=== PATIENT | male | born 1950 | race Caucasian/White ===

== ENCOUNTER 2018-05-03 18:55 | Observation (INO) | payer OTHER, MEDICARE ==
[2018-05-03] MEDS ORDERED: Sodium Chloride 0.9% 10 ML Syringe FLUSH PRN (19:35)
[2018-05-03] MEDS ORDERED: Ondansetron 4 MG/2 ML SDV IVPUSH ONE (19:36)
[2018-05-03] MEDS ORDERED: LORazepam 2 MG/ML SDV IVPUSH ONE (19:36)
[2018-05-03] MEDS ORDERED: Sodium Chloride 0.9% 1,000 ML IV SCH (19:45)
--- NOTE | 2018-05-03 20:20 | EDM.PDOC ---
ED HPI GENERAL MEDICAL PROBLEM - General Chief Complaint: Head Injury Stated Complaint: Head injury, intoxication, bloody emesis Time Seen by Provider: 05/03/18 18:55 Source of Information: Reports: Patient History Limitations: Reports: Altered Mental Status, Other (unresponsive) - History of Present Illness INITIAL COMMENTS - FREE TEXT/NARRATIVE: Pt. presents to ER via private vehicle. Family states that he has a history of alcoholism and was drinking heavily today. Family states that the patient fell down approx. 12 stairs. They were able to get him upstairs and into a car. He initially was minimally responsive, and on arrival to the ER, he was unresponsive. He had to be lifted out of the car. states that the patient has a history of severe alcohol abuse, frequent statements of suicidal ideation, and is non-compliant with his medical care. states that he will not Onset: Today Onset Date: 05/03/18 - Related Data Allergies Allergy/AdvReac Type Severity Reaction Status Date / Time No Known Allergies Allergy Verified 03/03/15 22:40 Home Meds: Home Meds Meloxicam [Mobic] 15 mg PO DAILY 03/03/15 [History] Mirtazapine 30 mg PO BEDTIME 03/03/15 [History] hydrOXYzine HCl [Atarax] 10 mg PO Q8H 03/03/15 [History] traZODone HCl [Trazodone HCl] 150 mg PO BEDTIME PRN 03/03/15 [History] ED ROS GENERAL - Review of Systems Review Of Systems: Unable To Obtain ED EXAM, HEAD INJURY - Physical Exam Exam: See Below Exam Limited By: No Limitations General Appearance: Alert, Obtunded, Other (unresponsive) Head: Scalp Lacerations, Scalp Swelling, Other (ecchymosis around R eye) Nexus Criteria: Evidence of Intoxication Eyes: Bilateral Eye: Other (R pupil dilated to 5, non-reactive. L pupil 3) Throat/Mouth: Normal Lips, Normal Oropharynx, No Airway Compromise, Other (Pt. had a large coffee ground emesis on arrival to ER) Respiratory: Respiratory Distress, Other (Pt. breathing greater than 30 times/ min) Cardiovascular: Normal Peripheral Pulses, Regular Rate, Rhythm, No Edema, No JVD GI/Abdominal Exam: Normal Bowel Sounds, Soft, Non-Tender (Male) Exam: Deferred Rectal (Males) Exam: Deferred Back Exam: Normal Inspection Extremities: No Pedal Edema, Pallor, Other (unable to assess due to unresponsiveness.) Skin: Pallor - Chun Coma Score Best Eye Response ([place]): (1) No Response Best Verbal Response (Chun): (2) Incomprehsible Sounds Best Motor Response (Chun): (1) No Motor Response Chun Total: 3 Course - Vital Signs Text/Narrative:: subdural, subarachnoid hematoma. Hemorrhagic contusion to R inferior frontal region. - Orders/Labs/Meds Orders: Active Orders 24 hr Category Date Time Status Head wo Cont [CT] Stat Exams 05/03/18 19:12 Taken Sodium Chloride 0.9% [Saline Flush] Med 05/03/18 19:35 Active 10 ml FLUSH ASDIRECTED PRN Peripheral IV Insertion Adult [OM.PC] Routine Oth 05/03/18 19:35 Ordered Medication Orders Sodium Chloride (Saline Flush) 10 ml FLUSH ASDIRECTED PRN PRN Reason: Keep Vein Open Meds: Medications Generic Name Dose Route Start Last Admin Trade Name Freq PRN Reason Stop Dose Admin Sodium Chloride 10 ml 05/03/18 19:35 Saline Flush FLUSH ASDIRECTED PRN Keep Vein Open Discontinued Medications Generic Name Dose Route Start Last Admin Trade Name Freq PRN Reason Stop Dose Admin Lorazepam 1 mg 05/03/18 19:36 05/03/18 19:50 Ativan IVPUSH 05/03/18 19:37 1 mg ONETIME ONE Administration Ondansetron HCl 4 mg 05/03/18 19:36 05/03/18 19:48 Zofran IVPUSH 05/03/18 19:37 4 mg ONETIME ONE Administration Departure - Departure Time of Disposition: 20:30 Disposition: Refer to Observation Condition: Critical Clinical Impression: Subdural hemorrhage, Subarachnoid hemorrhage, Scalp laceration, GI bleed - Discharge Information Referrals: PCP,Not In Area [Primary Care Provider] - - My Orders Last 24 Hours: My Active Orders 05/03/18 19:12 Head wo Cont [CT] Stat 05/03/18 19:35 Sodium Chloride 0.9% [Saline Flush] 10 ml FLUSH ASDIRECTED PRN Peripheral IV Insertion Adult [OM.PC] Routine - Assessment/Plan Last 24 Hours: My Active Orders 05/03/18 19:12 Head wo Cont [CT] Stat 05/03/18 19:35 Sodium Chloride 0.9% [Saline Flush] 10 ml FLUSH ASDIRECTED PRN Peripheral IV Insertion Adult [OM.PC] Routine Plan: Family states that pt. does not want to be resuscitated. Discussed findings with the family. Pt. will be admitted comfort cares. Will continue with comfort cares. He was given ativan and zofran in ER.
--- NOTE | 2018-05-03 20:20 | CT ---
[id number] CT/CT Head WO IV EXAM: CT Head WO IV CLINICAL DATA: TRAUMA. CHANGE IN MENTAL STATUS COMPARISON: CORRELATION IS MADE WITH THE EXAM OF MARCH 03, 2015. FINDINGS: A 1.5 cm right side holohemispheric acute subdural hematoma is seen with a 1 cm right to left midline shift. Subarachnoid hemorrhage is seen. There is diffuse abnormal hypodensity involving the brainstem concerning for acute ischemia. Report called at time of this dictation. Subdural hemorrhage is seen in the posterior fossa also. Hemorrhagic contusion is seen in the right inferior frontal region. Soft tissue hematoma is seen in the left parietal occipital region. IMPRESSION: Large acute right side holohemispheric subdural hematoma with [id number] midline shift. Brainstem ischemia. Subarachnoid blood. Juan Eng MD 05/03/182017 Thank you for allowing us to participate in the care of your patient.
[2018-05-03] MEDS ORDERED: Atropine 1% Ophth Soln 5 ML BOTTLE SL PRN (21:02)
[2018-05-03] MEDS ORDERED: LORazepam 2 MG/ML SDV IV PRN (21:02)
[2018-05-03] MEDS ORDERED: Ondansetron 4 MG Tab.DIS PO PRN (21:02)
[2018-05-03] MEDS ORDERED: Morphine 2 MG/ML Syringe IV PRN (21:02)
[2018-05-04 06:38] VITALS: BP 138/89
--- NOTE | 2018-05-04 07:55 | PCM.PN ---
- General Info Date of Service: 05/04/18 Admission Dx/Problem (Free Text): Fall, change in neuro status. On CT of head found to have large acute right side holohemispheric subdural hematoma with right to left midline shift, brainstem ischemia, subarachnoid blood. Functional Status: Reports: Pain Controlled - Review of Systems Systems Review Comment:: No systems review possible due to patient being unconscious at this time. - Patient Data Vitals - Most Recent: Last Vital Signs Temp 35.7 C 05/04/18 06:00 Pulse 97 05/04/18 06:00 Resp 24 H 05/04/18 06:00 BP 138/89 05/04/18 06:00 Pulse Ox 95 05/04/18 07:38 Weight - Most Recent: 58.06 kg I&O - Last 24 Hours: Intake & Output 05/03/18 05/04/18 05/04/18 22:59 06:59 14:59 Intake Total 280 Output Total 0 Balance 280 Med Orders - Current: Current Medications Atropine Sulfate (Atropine 1% Oph Soln) 0 ml SL Q2H PRN PRN Reason: Copius Secretions Sodium Chloride (Normal Saline) 1,000 mls @ 30 mls/hr IV ASDIRECTED ISADORA Last Admin: 05/03/18 19:45 Dose: 30 mls/hr Lorazepam (Ativan) 1 mg IV Q4H PRN PRN Reason: Restlessness or Anxiety Morphine Sulfate (Morphine) 2 mg IV Q1H PRN PRN Reason: Pain (severe 7-10) Ondansetron HCl (Zofran Odt) 4 mg PO Q4H PRN PRN Reason: Nausea/Vomiting Sodium Chloride (Saline Flush) 10 ml FLUSH ASDIRECTED PRN PRN Reason: Keep Vein Open Discontinued Medications Lorazepam (Ativan) 1 mg IVPUSH ONETIME ONE Stop: 05/03/18 19:37 Last Admin: 05/03/18 19:50 Dose: 1 mg Ondansetron HCl (Zofran) 4 mg IVPUSH ONETIME ONE Stop: 05/03/18 19:37 Last Admin: 05/03/18 19:48 Dose: 4 mg - Exam Quality Assessment: Supplemental Oxygen General: Other (comatose state) HEENT: Other (unable to follow commands to test eomi; non reactive). No: Pupils Reactive Neck: Supple Lungs: Clear to Auscultation, Normal Respiratory Effort Cardiovascular: Regular Rate, Regular Rhythm GI/Abdominal Exam: Normal Bowel Sounds, Soft Extremities: Normal Inspection, No Pedal Edema, Normal Capillary Refill Peripheral Pulses: 2+: Posterior Tibial (L), Posterior Tibial (R), Dorsalis Pedis (L), Dorsalis Pedis (R) Skin: Other (warm and diaphoretic) Wound/Incisions: Dressing Dry and Intact, No Drainage Neurological: Other (no changes) Physical Findings Comments:: Patient is comatose at this time due to traumatic fall down stairs resulting in subdural and subarachnoid bleeding within the brain/cranial vault. Brainstem ischemia. Per patient and family wishes, patient on comfort cares only. Will instruct nurse on the floor to insert catheter for additional end of life/ comfort care measure. - Problem List & Annotations (1) Subarachnoid hemorrhage SNOMED Code(s): 192955864 Code(s): I60.9 - NONTRAUMATIC SUBARACHNOID HEMORRHAGE, UNSPECIFIED Status: Acute Priority: High Current Visit: Yes (2) Subdural hemorrhage SNOMED Code(s): 93466229 Code(s): I62.00 - NONTRAUMATIC SUBDURAL HEMORRHAGE, UNSPECIFIED Status: Acute Priority: High Current Visit: Yes - Problem List Review Problem List Initiated/Reviewed/Updated: Yes - Plan Plan:: Plan per patient and family is to administer end of life care only. No extreme measures to be taken, no additional medication administration with exception of IV lorazepam and morphine for comfort and seizure prophylaxis.
--- NOTE | 2018-05-04 13:40 | PCM.SN ---
- Free Text/Narrative Note: Notification of patient's expiration at 1030 this AM.
--- NOTE | 2018-05-07 07:42 | PCM.DCSUM1 ---
Discharge Summary - Hospital Course Brief History: Patient with reported fall down stairs resulting in subarachnoid and subdural bleeding. Diagnosis: Stroke: No - Discharge Data Discharge Date: 05/05/18 Discharge Disposition: 20 Event(s) Leading to Patient's *Q: Fall down stairs Condition: - Discharge Diagnosis/Problem(s) (1) Subarachnoid hemorrhage SNOMED Code(s): 241852691 ICD Code: I60.9 - NONTRAUMATIC SUBARACHNOID HEMORRHAGE, UNSPECIFIED Status : Acute Priority: High (2) Subdural hemorrhage SNOMED Code(s): 55621728 ICD Code: I62.00 - NONTRAUMATIC SUBDURAL HEMORRHAGE, UNSPECIFIED Status: Acute Priority: High - Discharge Plan Home Medications: Home Meds Meloxicam [Mobic] 15 mg PO DAILY 03/03/15 [History] Mirtazapine 30 mg PO BEDTIME 03/03/15 [History] hydrOXYzine HCl [Atarax] 10 mg PO Q8H 03/03/15 [History] traZODone HCl [Trazodone HCl] 150 mg PO BEDTIME PRN 03/03/15 [History] Forms: ED Department Discharge Referrals: PCP,Not In Area [Primary Care Provider] - - Discharge Summary/Plan Comment DC Time >30 min.: No Discharge Summary/Plan Comment: Patient released to [facility] home - Patient Data Vitals - Most Recent: Last Vital Signs Temp 35.7 C 05/04/18 06:00 Pulse 97 05/04/18 06:00 Resp 24 H 05/04/18 06:00 BP 138/89 05/04/18 06:00 Pulse Ox 95 05/04/18 07:38 Weight - Most Recent: 58.06 kg Med Orders - Current: Current Medications Discontinued Medications Atropine Sulfate (Atropine 1% Ophth Soln) 0 ml SL Q2H PRN PRN Reason: Copius Secretions Last Admin: 05/04/18 09:49 Dose: 1 ml Sodium Chloride (Normal Saline) 1,000 mls @ 30 mls/hr IV ASDIRECTED ISADORA Last Admin: 05/03/18 19:45 Dose: 30 mls/hr Lorazepam (Ativan) 1 mg IVPUSH ONETIME ONE Stop: 05/03/18 19:37 Last Admin: 05/03/18 19:50 Dose: 1 mg Lorazepam (Ativan) 1 mg IV Q4H PRN PRN Reason: Restlessness or Anxiety Last Admin: 05/04/18 10:26 Dose: 1 mg Morphine Sulfate (Morphine) 2 mg IV Q1H PRN PRN Reason: Pain (severe 7-10) Last Admin: 05/04/18 09:49 Dose: 2 mg Ondansetron HCl (Zofran) 4 mg IVPUSH ONETIME ONE Stop: 05/03/18 19:37 Last Admin: 05/03/18 19:48 Dose: 4 mg Ondansetron HCl (Zofran Odt) 4 mg PO Q4H PRN PRN Reason: Nausea/Vomiting Sodium Chloride (Saline Flush) 10 ml FLUSH ASDIRECTED PRN PRN Reason: Keep Vein Open
== END 2018-05-04 11:20 | disposition expired ==
LOC: VM.ED 18:55 → VM.MS 20:20
PROVIDERS: ADMIT Physician Assistant; ATTEND Physician Assistant
DX: S06.6X9A Traumatic subarachnoid hemorrhage with loss of consciousness of unspecified duration, initial encounter (principal); S06.5X9A Traumatic subdural hemorrhage with loss of consciousness of unspecified duration, initial encounter; W10.9XXA Fall (on) (from) unspecified stairs and steps, initial encounter
CPT/HCPCS: 51702; 70450; 94760; 96374; 96375; 96376; 99291; A9270; G0378; J2060; J2270; J2405; J7030; 99217; 99220